=== PATIENT | male | born 1995 | race Caucasian/White ===

== ENCOUNTER 2025-02-09 13:06 | Emergency (ER) | payer OTHER ==
[~2025-02-09] VITALS: Ht 167.6 cm; Wt 91.1 kg
[2025-02-09] MEDS ORDERED: HYDROCODONE/ACETA 5/325 TAB PO ONE (15:45)
[2025-02-09] MEDS ORDERED: ONDANSETRON 4 MG TAB ODT SL ONE (15:45)
[2025-02-09 15:59] VITALS: BP 140/91
== END 2025-02-09 16:20 | disposition home or self-care (01) ==
LOC: ED 13:06
DX: T18.2XXA Foreign body in stomach, initial encounter (principal); J45.909 Unspecified asthma, uncomplicated; Z88.2 Allergy status to sulfonamides; W44.8XXA Other foreign body entering into or through a natural orifice, initial encounter
CPT/HCPCS: 71046; 74018; 99283-25; A9270

== ENCOUNTER 2025-02-11 11:54 | Emergency (ER) | payer OTHER ==
[~2025-02-11] VITALS: Ht 167.6 cm; Wt 90.6 kg
--- OUTSIDE RECORDS SUMMARY | 2025-02-11 12:01 | XMS ---
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 Etta has no Care Guidelines for this patient. [place] VISIT COUNT (12 MO.) [address] [facility] [place] TOTAL 2 NOTE: Visits indicate total known visits. [place]/[facility] [place] (12 MO.) 02/11/2025 11:55 [facility] [place] TYPE: Emergency COMPLAINT: - FOREIGN OBJECT 02/09/2025 13:07 [facility] [place] TYPE: Emergency COMPLAINT: - SWALLOWED FOREIGN OBJECT INPATIENT VISIT TRACKING (12 MO.) No inpatient visits to display in this time frame [email or web address]
[2025-02-11] MEDS ORDERED: FLUTICASONE-SA1 EAC4 INH (12:08)
[2025-02-11] MEDS ORDERED: BUPRENORPHIN-N1 EACH SL (12:09)
[2025-02-11] MEDS ORDERED: CORRECTOL5 MG PO (12:10)
[2025-02-11] MEDS ORDERED: ALL DAY ALLERGY10 M3 PO (12:10)
[2025-02-11] MEDS ORDERED: VENTOLIN HFA18 GM INH (12:10)
[2025-02-11] MEDS ORDERED: ANTIFUNGAL113 GM TOP (12:11)
[2025-02-11] MEDS ORDERED: MONTELUKAST SOD10 MG PO (12:11)
[2025-02-11] MEDS ORDERED: SALINE NASAL SP44 ML NAS (12:12)
[2025-02-11] MEDS ORDERED: OMEPRAZOLE20 MG PO (12:12)
[2025-02-11] MEDS ORDERED: THERA-GEL251 ML TOP (12:13)
[2025-02-11] MEDS ORDERED: VITAMIN B121000 MCG PO (12:14)
[2025-02-11] MEDS ORDERED: 24 HOUR NASAL16.9 ML NAS (12:14)
[2025-02-11] MEDS ORDERED: NABUMETONE500 MG PO (12:15)
[2025-02-11] MEDS ORDERED: ondansetron HCL 4 MG TAB PO ONE (12:45)
[2025-02-11 13:41] VITALS: BP 135/80
== END 2025-02-11 13:41 | disposition other institution, planned readmission (95) ==
LOC: ED 11:54
DX: T18.2XXA Foreign body in stomach, initial encounter (principal); T18.5XXA Foreign body in anus and rectum, initial encounter; J45.909 Unspecified asthma, uncomplicated; Z88.2 Allergy status to sulfonamides; Z79.899 Other long term (current) drug therapy; W44.D0XA Magnetic metal object unspecified, entering into or through a natural orifice, initial encounter
CPT/HCPCS: 74018; 99283; A9270

== ENCOUNTER 2025-02-28 22:34 | Emergency (ER) | payer OTHER ==
[~2025-02-28] VITALS: Ht 167.6 cm; Wt 89.2 kg
[~2025-02-28 22:34] MED LIST: 24 HOUR NASAL16.9 ML NAS; ALL DAY ALLERGY10 M3 PO; ANTIFUNGAL113 GM TOP; BUPRENORPHIN-N1 EACH SL; CORRECTOL5 MG PO; FLUTICASONE-SA1 EAC4 INH; MONTELUKAST SOD10 MG PO; NABUMETONE500 MG PO; OMEPRAZOLE20 MG PO; SALINE NASAL SP44 ML NAS; THERA-GEL251 ML TOP; VENTOLIN HFA18 GM INH; VITAMIN B121000 MCG PO
--- OUTSIDE RECORDS SUMMARY | 2025-02-28 22:41 | XMS ---
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 Etta has no Care Guidelines for this patient. [place] VISIT COUNT (12 MO.) 3 [facility] [place] [facility] TOTAL 3 NOTE: Visits indicate total known visits. ED/C VISIT TRACKING (12 MO.) 02/28/2025 22:[address] [facility] [facility] [place] TYPE: Emergency COMPLAINT: - FOREIGN BODY 02/11/2025 11:55 [facility] [place] TYPE: Emergency COMPLAINT: - FOREIGN OBJECT DIAGNOSES: - Allergy status to sulfonamides - Foreign body in anus and rectum, initial encounter - Foreign body in stomach, initial encounter - Magnetic metal object unspecified, entering into or through a natural orifice, initial encounter - Other mcc (current) drug therapy - Unspecified asthma, uncomplicated 02/09/2025 13:07 [facility] [place] TYPE: Emergency COMPLAINT: - SWALLOWED FOREIGN OBJECT DIAGNOSES: - Allergy status to sulfonamides - Foreign body in stomach, initial encounter - Other foreign body entering into or through a natural orifice, initial encounter - Unspecified asthma, uncomplicated INPATIENT VISIT TRACKING (12 MO.) No inpatient visits to display in this time frame [email or web address]
[2025-03-01 00:20] VITALS: BP 154/99
== END 2025-03-01 00:20 | disposition home or self-care (01) ==
LOC: ED 22:34
DX: T18.9XXA Foreign body of alimentary tract, part unspecified, initial encounter (principal); J45.909 Unspecified asthma, uncomplicated; W44.H0XA Other sharp object unspecified, entering into or through a natural orifice, initial encounter; Z79.51 Long term (current) use of inhaled steroids; Z79.899 Other long term (current) drug therapy; Z88.2 Allergy status to sulfonamides
CPT/HCPCS: 71045; 99284-25